=== PATIENT | female | born 1980 | race Caucasian/White ===

== ENCOUNTER 2018-07-11 08:11 | Emergency (ER) | payer MEDICAID, OTHER ==
[~2018-07-11] VITALS: Ht 154.9 cm; Wt 48.5 kg
[2018-07-11] MEDS ORDERED: SODIUM CHLORIDE 0.9% 1,000 ML IV ONE (08:33)
[2018-07-11 08:44] LABS: Urine Pregnacy Test Negative (Negative)
[2018-07-11 08:48] LABS: Urine Bacteria FEW /hpf (None Seen); Urine Blood Negative /uL (Negative); Urine Mucus FEW (None Seen); Urine Specific Gravity 1.029 (1.001-1.035); Urine WBC 5 /hpf (0 - 5)
[2018-07-11] MEDS ORDERED: SODIUM CHLORIDE 0.9% 1,000 ML IVB ONE (08:57)
[2018-07-11] MEDS ORDERED: MORPHINE SULFATE 4 MG/ML SYR/VIAL IV ONE (09:00)
[2018-07-11] MEDS ORDERED: PROMETHAZINE HCL 25 MG/ML 1ML IV PRN (09:00)
[2018-07-11 09:04] LABS: Basophils # (auto) 0.1 uL; Basophils % (auto) 0.8 % (0.0-2.0); Eosinophils # (auto) 0 uL; Eosinophils % (auto) 0.5 % (0.0-7.0); Hemoglobin 17.5 g/dL (12.2-16.2); Lymphocytes # (auto) 2.5 uL; Lymphocytes % (auto) 35.1 % (10.0-50.0); Mean Corpuscular Hemoglobin 29.7 pg (28.0-32.0); Mean Corpuscular Hgb Conc. 33.8 g/dL (32.0-36.0); Monocytes # (auto) 0.5 uL; Monocytes % (auto) 7.8 % (0.0-12.0); Neutrophils # (auto) 3.9 uL; Neutrophils % (auto) 55.8 % (37.0-80.0); Nucleated Red Blood Cells % 0.1 %; Platelet Count (auto) 370 10^3/uL (140-450); Red Blood Cells 5.91 10^6/uL (4.0-5.20); Red Cell Distribution Width 14.5 % (11.8-14.3)
[2018-07-11 09:16] LABS: Albumin 4.8 g/dL (3.4-5.0); Calcium 10.4 mg/dL (8.5-10.1); Potassium 3.3 mmol/L (3.5-5.1)
[2018-07-11 09:19] LABS: BUN/Creatinine Ratio 12.6; Bilirubin, Total 1.1 mg/dL (0.2-1.0); Total Protein 9.1 g/dL (6.4-8.2)
[2018-07-11 09:20] LABS: Alcohol, Urine < 3.0 mg/dL (0-5); Amphetamine Screen, Urine NEGATIVE (NEGATIVE); Barbiturate Scree,Urine NEGATIVE (NEGATIVE); Benzodiazephine Screen, Urine NEGATIVE (NEGATIVE); Cannabinoid Screen, Urine POSITIVE (NEGATIVE); Cocaine Screen, Urine NEGATIVE (NEGATIVE); Opiate Scree,Urine NEGATIVE (NEGATIVE); Phencyclidine Screen, Urine NEGATIVE (NEGATIVE)
[2018-07-11 09:39] LABS: Magnesium 2.2 mg/dL (1.6-2.6)
[2018-07-11 10:58] VITALS: BP 114/52
== END 2018-07-11 11:10 | disposition home or self-care (01) ==
LOC: ER 08:11
DX: R11.10 Vomiting, unspecified (principal); F12.188 Cannabis abuse with other cannabis-induced disorder; E86.0 Dehydration; E87.6 Hypokalemia; G43.909 Migraine, unspecified, not intractable, without status migrainosus; F17.210 Nicotine dependence, cigarettes, uncomplicated
CPT/HCPCS: 36415; 74176; 80053; 80307; 81001; 81025; 83690; 83735; 85025; 96361; 96374; 99284; J2270; J2550; J7030

== ENCOUNTER 2018-07-12 21:00 | Emergency (ER) | payer MEDICAID ==
[2018-07-12 23:25] VITALS: BP 104/77
[2018-07-12] MEDS ORDERED: ACETAMINOPHEN 500 MG TAB PO ONE (23:30)
[2018-07-12] MEDS ORDERED: IBUPROFEN 600 MG TAB PO ONE (23:30)
[2018-07-12] MEDS ORDERED: cefTRIAXone SOD 1,000 MG VL IM ONE (23:30)
== END 2018-07-13 00:12 | disposition home or self-care (01) ==
LOC: EDBD 21:00 → ER 21:05
DX: M27.69 Other endosseous dental implant failure (principal); F17.210 Nicotine dependence, cigarettes, uncomplicated; F12.90 Cannabis use, unspecified, uncomplicated
CPT/HCPCS: 96372; 99283; J0696

== ENCOUNTER 2020-08-12 17:01 | Emergency (ER) | payer MEDICAID ==
[~2020-08-12] VITALS: Ht 154.9 cm; Wt 49.9 kg
[2020-08-12] MEDS ORDERED: SODIUM CHLORIDE 0.9% 1,000 ML IVB ONE (17:15)
[2020-08-12] MEDS ORDERED: ONDANSETRON HCL 4 MG/2 ML VIAL IV ONE (17:15)
[2020-08-12] MEDS ORDERED: MORPHINE SULFATE 4 MG/ML SYR/VIAL IV ONE (17:30)
[2020-08-12] MEDS ORDERED: THIAMINE 100mg/ml INJ (200mg/2ml VIAL) IV ONE (17:30)
[2020-08-12 17:54] LABS: Basophils # (auto) 0 10 ^3/uL (0-0.2); Basophils % (auto) 0.5 % (0.0-2.0); Eosinophils # (auto) 0.2 10 ^3/uL (0-0.8); Eosinophils % (auto) 3.3 % (0.0-7.0); Hematocrit 45.3 % (36.0-46.0); Hemoglobin 15.7 g/dL (12.2-16.2); Lymphocytes # (auto) 1.5 10 ^3/uL (0.4-5.4); Lymphocytes % (auto) 29.6 % (10.0-50.0); Mean Corpuscular Hemoglobin 31.3 pg (28.0-32.0); Mean Corpuscular Hgb Conc. 34.7 g/dL (32.0-36.0); Mean Corpuscular Volume 90.4 fL (80.0-100.0); Monocytes # (auto) 0.4 10 ^3/uL (0-1.3); Monocytes % (auto) 7.5 % (0.0-12.0); Neutrophils # (auto) 3.1 10 ^3/uL (1.6-8.6); Neutrophils % (auto) 59.1 % (37.0-80.0); Nucleated Red Blood Cells % 0.2 %; Platelet Count (auto) 290 10^3/uL (140-450); Red Blood Cells 5.02 10^6/uL (4.0-5.20); Red Cell Distribution Width 14.5 % (11.8-14.3); White Blood Cell 5.2 10^3/uL (4.4-10.8)
[2020-08-12 18:10] LABS: Albumin 4.2 g/dL (3.4-5.0); BUN/Creatinine Ratio 19.1; Calcium 9.2 mg/dL (8.5-10.1); Magnesium 2.3 mg/dL (1.6-2.6); Potassium 3.2 mmol/L (3.5-5.1)
[2020-08-12 18:11] LABS: Bilirubin, Total 0.7 mg/dL (0.2-1.0); Total Protein 7.8 g/dL (6.4-8.2)
[2020-08-12] MEDS ORDERED: DexAMETHasone SOD PHOS 10MG/1ML VIAL INJ IV ONE (21:45)
[2020-08-12] MEDS ORDERED: cefTRIAXone 1GM/50ML D5W 50 ML IV ONE (21:45)
[2020-08-12] MEDS ORDERED: AZITHROMYCIN 500MG/ 250ML 250 ML IV ONE (21:45)
[2020-08-12 22:18] VITALS: BP 106/68
== END 2020-08-12 22:56 | disposition home or self-care (01) ==
LOC: ER 17:01
DX: J18.9 Pneumonia, unspecified organism (principal); K29.00 Acute gastritis without bleeding; F17.210 Nicotine dependence, cigarettes, uncomplicated
CPT/HCPCS: 36415; 71045; 74176; 80053; 80320; 82150; 83605; 83690; 83735; 85025; 96361; 96365; 96368; 96375; 99285; J0456; J0696; J1100; J2270; J2405; J3411; 80307; 81001; 87426

== ENCOUNTER 2021-09-20 11:19 | Emergency (ER) | payer MEDICAID ==
[~2021-09-20] VITALS: Ht 154.9 cm; Wt 49.9 kg
[2021-09-20] MEDS ORDERED: ONDANSETRON HCL 4 MG/2 ML VIAL IV ONE ×2 (12:00→19:30)
[2021-09-20] MEDS ORDERED: LIDOCAINE VISCOUS 2% 15ML UD PO ONE (12:00)
[2021-09-20] MEDS ORDERED: LACTATED RINGER'S 1,000 ML IV ONE (12:00)
[2021-09-20] MEDS ORDERED: ALUM & MAG HYDROX-SIMETH LIQ(MAALOX) 30 ML PO ONE (12:00)
[2021-09-20] MEDS ORDERED: FAMOTIDINE (10MG/ML) 2ML VL IV ONE (12:00)
[2021-09-20 12:32] LABS: Basophils # (auto) 0 10 ^3/uL (0-0.2); Basophils % (auto) 0.3 % (0.0-2.0); Eosinophils # (auto) 0.1 10 ^3/uL (0-0.8); Eosinophils % (auto) 2.2 % (0.0-7.0); Hematocrit 44.3 % (36.0-46.0); Hemoglobin 15.1 g/dL (12.2-16.2); Lymphocytes # (auto) 0.4 10 ^3/uL (0.4-5.4); Lymphocytes % (auto) 7.5 % (10.0-50.0); Monocytes # (auto) 0.4 10 ^3/uL (0-1.3); Neutrophils # (auto) 4.5 10 ^3/uL (1.6-8.6); Nucleated Red Blood Cells % 0.1 %; Red Blood Cells 5.03 10^6/uL (4.0-5.20); White Blood Cell 5.4 10^3/uL (4.4-10.8)
[2021-09-20 12:50] LABS: Calcium 9.6 mg/dL (8.5-10.1); Potassium 3.3 mmol/L (3.5-5.1)
[2021-09-20 12:53] LABS: BUN/Creatinine Ratio 8.7; Magnesium 1.8 mg/dL (1.6-2.6)
[2021-09-20 12:55] LABS: Lactic Acid w/Reflex 2.8 mmol/L (0.4-2.0)
[2021-09-20 12:56] LABS: Bilirubin, Total 0.9 mg/dL (0.2-1.0); Total Protein 7.4 g/dL (6.4-8.2)
[2021-09-20] MEDS ORDERED: POTASSIUM EFFERVESENT TAB 25 MEQ PO ONE (13:15)
[2021-09-20] MEDS ORDERED: SODIUM CHLORIDE 0.9% 1,000 ML IV ONE (17:15)
[2021-09-20] MEDS ORDERED: METOCLOPRAMIDE HCL 5MG/ml INJ 2ml VIAL IV ONE (17:15)
[2021-09-20] MEDS ORDERED: IOHEXOL 300 MG/ML 100ML BOTTLE IJ ONE (17:32)
[2021-09-20 18:00] VITALS: BP 94/57
[2021-09-20] MEDS ORDERED: ONDA-144 PO (19:31)
[2021-09-20 19:32] LABS: Urine Bacteria FEW /hpf (None Seen); Urine Blood 3+ /uL (Negative); Urine WBC 2 /hpf (0 - 5)
[2021-09-20 19:33] LABS: Urine Specific Gravity > 1.055 (1.001-1.035)
== END 2021-09-20 20:15 | disposition left against medical advice (07) ==
LOC: ER 11:19 → EDBD 11:19 → ER 19:30
DX: R11.2 Nausea with vomiting, unspecified (principal); R10.84 Generalized abdominal pain; J45.909 Unspecified asthma, uncomplicated; G43.909 Migraine, unspecified, not intractable, without status migrainosus; F17.210 Nicotine dependence, cigarettes, uncomplicated
CPT/HCPCS: 36415; 74177; 76705; 80053; 81001; 81025; 83605; 83690; 83735; 84484; 84702; 85025; 93005; 96361; 96374; 96375; 99285; J2405; J2765; J3490; J7030; Q9967

== ENCOUNTER 2023-12-14 19:08 | Emergency (ER) | payer MEDICAID ==
[~2023-12-14] VITALS: Ht 160 cm; Wt 65.0 kg
[~2023-12-14 19:08] MED LIST: ONDA-144 PO
[2023-12-14 20:00] VITALS: TEMP 98.1; O2SAT 98
[2023-12-14 20:24] LABS: Basophils # (auto) 0 10 ^3/uL (0-0.2); Basophils % (auto) 0.3 % (0.0-2.0); Eosinophils # (auto) 0 10 ^3/uL (0-0.8); Eosinophils % (auto) 0.5 % (0.0-7.0); Hematocrit 44.5 % (36.0-46.0); Hemoglobin 15.2 g/dL (12.2-16.2); Lymphocytes # (auto) 1.6 10 ^3/uL (0.4-5.4); Lymphocytes % (auto) 21.1 % (10.0-50.0); Mean Corpuscular Hemoglobin 29.3 pg (28.0-32.0); Mean Corpuscular Hgb Conc. 34.2 g/dL (32.0-36.0); Mean Corpuscular Volume 85.7 fL (80.0-100.0); Monocytes # (auto) 0.5 10 ^3/uL (0-1.3); Monocytes % (auto) 6.9 % (0.0-12.0); Neutrophils # (auto) 5.4 10 ^3/uL (1.6-8.6); Neutrophils % (auto) 71.2 % (37.0-80.0); Nucleated Red Blood Cells % 0.1 %; Red Cell Distribution Width 15.7 % (11.8-14.3); White Blood Cell 7.6 10^3/uL (4.4-10.8)
[2023-12-14] MEDS ORDERED: ZOFR4T PO (20:26)
[2023-12-14] MEDS ORDERED: PANT40TA2 PO (20:26)
[2023-12-14] MEDS: MORPHINE SULFATE 4 MG/ML SYR/VIAL IV ONE ×2 (20:30→21:11)
[2023-12-14 20:45] LABS: Alanine Aminotransferase 16 U/L (7-40); Alkaline Phosphatase 97 U/L (46-116); Anion Gap 12 (5-15); Aspartate Aminotransferase 21 U/L (13-40); BUN/Creatinine Ratio 9.7 (10.0-20.0); Bilirubin, Total 0.8 mg/dL (0.2-1.0); Blood Urea Nitrogen 9 mg/dL (9-23); Calcium 10.8 mg/dL (8.7-10.4); Carbon Dioxide 25 mmol/L (20-30); Chloride 102 mmol/L (98-107); Glucose 121 mg/dL (74-106); Lipase 28 U/L (12-53); Potassium 3.2 mmol/L (3.5-5.1); Sodium 139 mmol/L (136-145); Total Protein 7.6 g/dL (5.7-8.2)
[2023-12-14] MEDS: SODIUM CHLORIDE 0.9% 1,000 ML IVB ONE (21:05)
[2023-12-14] MEDS: PROCHLORPERAZINE EDISYLATE 5 MG/ML 2ML VIAL IV ONE (21:11)
[2023-12-14] MEDS: PANTOPRAZOLE 40 MG/10 ML VIAL INJ IV ONE (21:11)
[2023-12-14 21:41] VITALS: BP 113/82; PULSE 89; RESP 14
== END 2023-12-14 23:40 | disposition home or self-care (01) ==
LOC: EDBD 19:08 → ER 19:08
DX: R11.10 Vomiting, unspecified (principal); F12.90 Cannabis use, unspecified, uncomplicated; Z79.899 Other long term (current) drug therapy
CPT/HCPCS: 36415; 76705; 80053; 83690; 85025; 96361; 96374; 96375; 99285; J0780; J2270; J2470; J7030

== ENCOUNTER 2024-05-08 09:09 | Emergency (ER) | payer MEDICAID ==
[~2024-05-08] VITALS: Ht 154.9 cm; Wt 65.0 kg
[~2024-05-08 09:09] MED LIST changes: +PANT40TA2 PO; +ZOFR4T PO
[2024-05-08 10:51] LABS: Basophils # (auto) 0 10 ^3/uL (0-0.2); Basophils % (auto) 0.5 % (0.0-2.0); Eosinophils # (auto) 0.1 10 ^3/uL (0-0.8); Eosinophils % (auto) 1.1 % (0.0-7.0); Hematocrit 45.1 % (36.0-46.0); Lymphocytes # (auto) 1.5 10 ^3/uL (0.4-5.4); Lymphocytes % (auto) 28.4 % (10.0-50.0); Mean Corpuscular Hemoglobin 28.7 pg (28.0-32.0); Mean Corpuscular Hgb Conc. 33.3 g/dL (32.0-36.0); Mean Corpuscular Volume 86.2 fL (80.0-100.0); Monocytes # (auto) 0.4 10 ^3/uL (0-1.3); Monocytes % (auto) 7.6 % (0.0-12.0); Neutrophils # (auto) 3.3 10 ^3/uL (1.6-8.6); Neutrophils % (auto) 62.4 % (37.0-80.0); Nucleated Red Blood Cells % 0.1 %; Platelet Count (auto) 328 10^3/uL (140-450); Red Blood Cells 5.24 10^6/uL (4.0-5.20); Red Cell Distribution Width 15.7 % (11.8-14.3); White Blood Cell 5.3 10^3/uL (4.4-10.8)
[2024-05-08] MEDS: SODIUM CHLORIDE 0.9% 500 ML IVB ONE (11:00)
[2024-05-08] MEDS: PANTOPRAZOLE 40 MG TAB PO ONE (11:03)
[2024-05-08] MEDS: METOCLOPRAMIDE HCL 5MG/ml INJ 2ml VIAL IV ONE (11:03)
[2024-05-08] MEDS: DONNATAL 5ml ORAL Elix (BELLADONNA ALK-PHENOBARB) PO ONE (11:04)
[2024-05-08] MEDS: MAALOX PLUS or MAALOX 30 ML PO ONE (11:04)
--- NOTE | 2024-05-08 11:04 | DVH ---
INDICATION: epigastric pain TECHNIQUE: Multiple real-time sonographic images were obtained of the right upper quadrant. COMPARISON: US GALLBLADDER on DOS: 12/14/23, GALLBLADDER on DOS: 09/20/21 FINDINGS: The liver demonstrates homogenous echotexture without focal mass lesions. The liver measure s 13.7 cm. There is no intrahepatic or extrahepatic ductal dilatation. The common duct measures 5 mm . The gallbladder is without evidence of stone or sludge. The gallbladder wall measures 2 mm and is wi thin normal limits. The right kidney measures 10.8 cm. The right kidney is normal in contour, size, and shape. The echo genicity is normal. There is no hydronephrosis. The pancreas is not well visualized due to overlying bowel gas. IMPRESSION: 1. No sonographic evidence of gallstones or acute cholecystitis. HS:Y
[2024-05-08 11:07] VITALS: BP 110/78; RESP 15; TEMP 98.1; O2SAT 98
[2024-05-08 11:13] LABS: Alanine Aminotransferase 12 U/L (7-40); Alkaline Phosphatase 91 U/L (46-116); Anion Gap 5 (5-15); Aspartate Aminotransferase 19 U/L (13-40); BUN/Creatinine Ratio 8.7 (10.0-20.0); Carbon Dioxide 29 mmol/L (20-31); Chloride 104 mmol/L (98-107); Magnesium 2.2 mg/dL (1.6-2.6); Potassium 3.8 mmol/L (3.5-5.1); Sodium 138 mmol/L (136-145)
[2024-05-08 11:14] LABS: Albumin 5.1 g/dL (3.2-4.8); Bilirubin, Total 0.8 mg/dL (0.2-1.0); Blood Urea Nitrogen 8 mg/dL (9-23); Calcium 10.9 mg/dL (8.7-10.4); Glucose 115 mg/dL (74-106); Total Protein 7.9 g/dL (5.7-8.2)
[2024-05-08] MEDS: LORazepam 2MG/ML-1ML VIAL IV ONE (11:20)
[2024-05-08 11:52] LABS: Lipase 37 U/L (12-53)
[2024-05-08 11:54] VITALS: PULSE 85
--- NOTE | 2024-05-08 11:54 | ED.PDOC ---
History of Present Illness HPI Comments 44 y/o F, with a Hx fo anxiety, depression, and polysubstance abuse, presents with c/o non-radiating, generalized-upper abdominal pain, nausea, blurry vision, generalized tremors, and anxiety, today. Patient endorses on onset of symptoms for the past 2x days in addition to endorsing on "noticing blood" after self- inducing herself to vomit due to pain and nausea symptoms, today. Patient reports no diarrhea, urinary symptoms, fever, chills, headache, cough, or other associated symptoms or modifiers at this time. Chief Complaint: Abdominal Pain Time Seen by MD: 11:10 Primary Care Provider: UNKNOWN Reviewed Notes: Nurses Notes, Medications, Allergies Allergies: Coded Allergies: NO KNOWN ALLERGIES (Unverified , 09/20/21) Home Meds Active Scripts Ondansetron Odt 4MG Tab (ZOFRAN PO) 4 Mg Tb, 4 MG PO Q8HPRN PRN for 7 Days, #21 TAB ODT TAB-DISSOLVE IN MOUTH, THEN SWALLOW Prov:ANGY SCHREIBER MD 12/14/23 Pantoprazole Sodium Sesquihydr (Protonix) 40 Mg Tab, 40 MG PO DAILY, #30 TAB Prov:ANGY SCHREIBER MD 12/14/23 Ondansetron (Zofran) 4 Mg Tab, 4 MG PO TID PRN for 3 Days, #9 TAB 0 Refills Prov:FEI RODRIGUEZ MD 09/20/21 Information Source: Patient Mode of Arrival: Ambulatory Severity: Moderate Timing: Hours Duration: Since onset Prehospital treatment: None Past Medical History PAST MEDICAL HISTORY: Anxiety, Asthma, Depression Surgical History: Denies all surgeries BLOCK CUBER History: No Pertinent BLOCK CUBER History Family History Family History: Unobtainable Social History Smoker: Quit Less Than 1 Year (1xmonth - tobacco cigarettes ) Alcohol: Sober (quite 1x week ago) Drugs: Marijuana (quite 1x week ago) Lives In: Home EENTM: reports: blurred vision Gastrointestinal: reports: abdominal pain, hematemesis (s/p self-induced vomiting), nausea Neurological: reports: tremors (generalized ) Psychiatric: reports: anxiety All Other Systems: Reviewed and Negative (negative unless otherwise stated above or in HPI) Physical Exam General Appearance: Mild Distress, Normal HEENT: Normal ENT Inspection, Pharynx Normal, TMs Normal Neck: Full Range of Motion, Non-Tender, Normal, Normal Inspection Respiratory: Chest Non-Tender, Lungs Clear, No Accessory Muscle Use, No Respiratory Distress, Normal Breath Sounds Cardiovascular: No Edema, No JVD, No Murmur, No Gallop, Normal Peripheral Pulses, Regular Rate/Rhythm Breast Exam: Deferred Gastrointestinal: Epigastric, No Organomegaly, No Pulsatile Mass, Normal Bowel Sounds, RUQ, Tenderness Genitalia: Deferred Pelvic: Deferred Rectal: Deferred Extremities: No calf tenderness, Normal capillary refill, Normal inspection, Normal range of motion, Non-tender, No pedal edema Neurologic: Alert, sword swallower II-XII nml as Tested, No Motor Deficits, Normal Affect, Normal Mood, No Sensory Deficits Cerebellar Function: Normal Reflexes: Normal Skin: Dry, Normal Color, Warm Peripheral Pulses: 1+ carotid (R), 1+ carotid (L) Lymphatic: No Adenopathy Was a procedure done? Was a procedure done?: No EKG EKG : Pulse Rate (adult): 85 [place]: Normal Cardiac Rhythm: NSR, PVC's Block: None Hypertrophy: None ST: Normal Differential Dx Considerations may include: gastritis, gastroenteritis, esophagitis, PUD, GERD, spoiled food, viral syndrome cannabinoid hyperemesis syndrome X-Ray, Labs, Meds, VS Vital Signs Date Time Temp Pulse Resp B/P (MAP) Pulse Ox O2 Delivery O2 Flow Rate FiO2 05/08/24 11:54 85 05/08/24 11:07 98.1 68 15 110/78 (89) 98 98.1 05/08/24 09:31 98.8 97 16 122/89 (100) 100 05/08/24 09:31 85 Lab Test 05/08/24 10:35 Range/Units White Blood Count 5.3 4.4-10.8 10^3/uL Red Blood Count 5.24 H 4.0-5.20 10^6/uL Hemoglobin 15.0 12.2-16.2 g/dL Hematocrit 45.1 36.0-46.0 % Mean Corpuscular Volume 86.2 80.0-100.0 fL Mean Corpuscular Hemoglobin 28.7 28.0-32.0 pg Mean Corpuscular Hemoglobin Concent 33.3 32.0-36.0 g/dL Red Cell Distribution Width 15.7 H 11.8-14.3 % Platelet Count 328 140-450 10^3/uL Mean Platelet Volume 7.7 6.9-10.8 fL Neutrophils (%) (Auto) 62.4 37.0-80.0 % Lymphocytes (%) (Auto) 28.4 10.0-50.0 % Monocytes (%) (Auto) 7.6 0.0-12.0 % Eosinophils (%) (Auto) 1.1 0.0-7.0 % Basophils (%) (Auto) 0.5 0.0-2.0 % Neutrophils # (Auto) 3.3 1.6-8.6 10 ^3/uL Lymphocytes # (Auto) 1.5 0.4-5.4 10 ^3/uL Monocytes # (Auto) 0.4 0-1.3 10 ^3/uL Eosinophils # (Auto) 0.1 0-0.8 10 ^3/uL Basophils # (Auto) 0 0-0.2 10 ^3/uL Nucleated Red Blood Cells 0.1 % Sodium Level 138 136-145 mmol/L Potassium Level 3.8 3.5-5.1 mmol/L Chloride Level 104 98-107 mmol/L Carbon Dioxide Level 29 20-31 mmol/L Anion Gap 5 5-15 Blood Urea Nitrogen 8 L 9-23 mg/dL Creatinine 0.92 0.550-1.02 mg/dL Glomerular Filtration Rate Calc 78 >90 mL/min BUN/Creatinine Ratio 8.7 L 10.0-20.0 Serum Glucose 115 H 74-106 mg/dL Calcium Level 10.9 H 8.7-10.4 mg/dL Magnesium Level 2.2 1.6-2.6 mg/dL Total Bilirubin 0.8 0.2-1.0 mg/dL Aspartate Amino Transferase (AST) 19 13-40 U/L Alanine Aminotransferase (ALT) 12 7-40 U/L Alkaline Phosphatase 91 46-116 U/L Total Protein 7.9 5.7-8.2 g/dL Albumin 5.1 H 3.2-4.8 g/dL Lipase Pending Beta HCG, Quantitative 1.4 L 1.5-4.2 mIU/mL Current Medications Medications (Trade) Dose Ordered Sig/Lucas Route Start Time Stop Time Status Last Admin Metoclopramide HCl (Reglan Injection) 10 mg ONCE ONCE IV 05/08/24 10:30 05/08/24 10:31 DC 05/08/24 11:03 Al Hydrox/Mg Hydrox/Simethicone (Maalox Plus) 30 ml ONCE ONCE PO 05/08/24 10:30 05/08/24 10:31 DC 05/08/24 11:04 Belladonna Alkaloids/ Phenobarbital ( Elixir) 5 ml ONCE ONCE PO 05/08/24 10:30 05/08/24 10:31 DC 05/08/24 11:04 Sodium Chloride 500 ml @ 500 mls/hr Q1H ONCE IVB 05/08/24 10:30 05/08/24 11:29 DC 05/08/24 11:00 Pantoprazole Sodium (Protonix Tablet) 40 mg ONCE ONCE PO 05/08/24 10:30 05/08/24 10:31 DC 05/08/24 11:03 Lorazepam (Ativan Inj) 1 mg ONCE ONCE IV 05/08/24 11:30 05/08/24 11:31 DC 05/08/24 11:20 [place] [id number] Ph: [phone] DIAGNOSTIC IMAGING Diagnostic Imaging Report : [id number] Signed PATIENT: ISRAEL BYRD ACCT: [id number] UNIT: [id number] : 1980 LOC: ER ROOM / BED: / AGE / SEX: 44 / F ADM STATUS: REG ER SERVICE 1026 ORDERING PHYSICIAN: GREYSON CROWLEY MD PROCEDURE(s): GBUS - GALLBLADDER REASON: epigastric pain ORDER NUMBER(s): [id number], ACCESSION NUMBER(s): [id number] INDICATION: epigastric pain TECHNIQUE: Multiple real-time sonographic images were obtained of the right upper quadrant. COMPARISON: US GALLBLADDER on DOS: 12/14/23, GALLBLADDER on DOS: 09/20/21 FINDINGS: The liver demonstrates homogenous echotexture without focal mass lesions. The liver measures 13.7 cm. There is no intrahepatic or extrahepatic ductal dilatation. The common duct measures 5 mm. The gallbladder is without evidence of stone or sludge. The gallbladder wall measures 2 mm and is within normal limits. The right kidney measures 10.8 cm. The right kidney is normal in contour, size, and shape. The echogenicity is normal. There is no hydronephrosis. The pancreas is not well visualized due to overlying bowel gas. IMPRESSION: 1. No sonographic evidence of gallstones or acute cholecystitis. HS:Y ATED BY: JESÚS MURCIA DO DICTATED DATE/TIME: 05/08/241101 SIGNED BY: JESÚS MURCIA DO SIGNED DATE/TIME: 05/08/241101 CC: X-Ray, Labs, Meds, VS Comment Course in the emergency department eventful patient came in complaining of epigastric pain with nausea and vomiting patient has history of depression anxiety CBC is normal CMP negative Blood sugar 115 Magnesium 2.2 Lipase pending negative Ultrasound pelvis is all negative Patient has been hydrated and medicated She will be discharged home to follow up with PCP Time of 1ST Reevaluation: 11:40 Reevaluation 1ST: Unchanged Patient Education/Counseling: Diagnosis, Treatment Family Education/Counseling: No Family Present Additional Information - The following tests were ordered, and results were reviewed by me: gallbladder US, EKG, CBC, CMP, beta-quant, lipase, urine analysis, Mg2+ - I reviewed and agreed with the following test results read by other provider: gallbladder US - I discussed treatments and results with medical personnel Departure 1 Departure Time of Disposition: 00:00 Impression: Primary Impression: Cannabinoid hyperemesis syndrome Additional Impression: Refractory nausea and vomiting Disposition: 01 HOME / SELF CARE / HOMELESS Condition: Fair Additional Instructions: Push fluids and follow up with your PCP Stop taking the marijuana e-Prescriptions Prochlorperazine Maleate (Compazine) 10 Mg Tb 1 TAB PO Q6HR for 5 Days, #20 TAB 3 Refills Prov: GREYSON CROWLEY MD 05/08/24 Aluminum Hydroxide-Mag Carb (Gaviscon Extra Strength) 1 Chw Chw 1 CHW PO QID for 10 Days, #40 TAB.CHEW Prov: GREYSON CROWLEY MD 05/08/24 Discharged With: Self Critical Care Note Critical Care Time?: No Stability Stability form required: No Heart Score Heart Score: Heart Score Response (Comments) Value History N/A 0 EKG N/A 0 Age <45 0 Risk Factors No known risk factors 0 Troponin N/A 0 Total 0 I personally scribed for GREYSON CROWLEY MD ([email or web address]) on 05/08/24 at 11:54. Electronically submitted by Jason Edmond [email or web address]). GREYSON CROWLEY MD May 08, 2024 11:54
[2024-05-08] MEDS ORDERED: ALUMCHW6 PO (12:07)
[2024-05-08] MEDS ORDERED: PROC10TA6 PO (12:07)
--- NOTE | 2024-05-08 12:15 | ECG ---
[facility] Test Date: 2024-05-08 Test Time: 09:28:05 Pat Name: ISRAEL BYRD Department: ER Room: Gender: F Ramp Supervisor: JORGE LUIS : 1980 Requested By: GREYSON CROWLEY Order Number: [id number] Reading MD: Julián Allison Measurements Intervals [place] Rate: 85 P: 53 SC: 114 QRS: 42 QRSD: 84 T: 15 QT: 405 QTc: 482 Interpretive Statements Sinus rhythm Ventricular premature complex Borderline short SC interval Borderline T abnormalities, anterior leads Electronically Signed On 05-10-2024 12:44:13 PST by Julián Allison Please click the below link to view image of tracing.
[2024-05-08 12:36] LABS: Urine Amorphous Crystal FEW /hpf (None Seen); Urine Bacteria FEW /hpf (None Seen); Urine Blood TRACE /uL (Negative); Urine Clarity Ex.Turbid (Clear); Urine Color Dark-Brown (Yellow); Urine Mucus FEW (None Seen); Urine Protein, UAD 1+ (Negative); Urine Specific Gravity 1.027 (1.001-1.035); Urine Squamous Epithelial Cell MANY /hpf (<5); Urine Urobilinogen Normal (Negative); Urine WBC 27 /hpf (0 - 5); Urine WBC Clumps PRESENT /hpf (None Seen); Urine pH 5.5 (5.0-9.0)
== END 2024-05-08 12:21 | disposition home or self-care (01) ==
LOC: ER 09:09
DX: F12.188 Cannabis abuse with other cannabis-induced disorder (principal); J45.909 Unspecified asthma, uncomplicated; F41.9 Anxiety disorder, unspecified; Z79.899 Other long term (current) drug therapy; Z87.891 Personal history of nicotine dependence
CPT/HCPCS: 36415; 76705; 80053; 81001; 83690; 83735; 84702; 85025; 93005; 96374; 96375; 99285; J2060; J2765; J7040